=== PATIENT | male | born 1975 | race Caucasian/White ===

== ENCOUNTER 2019-10-01 15:28 | Emergency (ER) | payer BC ==
[2019-10-01] MEDS ORDERED: BACTRIM 160MG/800MG DS TAB As Ordered ONE (16:43)
[2019-10-01] MEDS ORDERED: BACTRIM 160MG/800MG DS TAB ONE (16:43)
== END 2019-10-01 16:54 | disposition home or self-care (01) ==
LOC: M ED 15:28
DX: K61.1 Rectal abscess (principal); I10 Essential (primary) hypertension; Z79.899 Other long term (current) drug therapy

== ENCOUNTER 2022-05-30 11:07 | Emergency (ER) | payer OTHER, BC ==
[~2022-05-30] VITALS: Ht 172.7 cm; Wt 104.5 kg
[2022-05-30] MEDS ORDERED: ISOVUE-370 76% 100ML VIAL As Ordered ONE (11:31)
[2022-05-30 11:36] LABS: BASO # 0.1 10^3/uL (0.0-0.2); EOS # 0.3 10^3/uL (0.0-0.5); EOS % 4.4 % (0.0-3.0); HEMATOCRIT 55.6 % (42.0-52.0); HEMOGLOBIN 17.5 g/dl (13.5-17.5); LYMPH % 17.5 % (24.0-44.0); MEAN CORPUSCULAR HEMOGLOBIN 25.4 pg (27.0-33.0); MEAN CORPUSCULAR HGB CONC 31.5 g/dl (32.0-36.5); MEAN CORPUSCULAR VOLUME 80.8 fl (80.0-96.0); MONO # 0.7 10^3/uL (0.0-0.8); MONO % 11.4 % (2.0-8.0); NEUTROPHILS # 3.9 10^3/uL (1.5-8.5); NEUTROPHILS % 65.4 % (36.0-66.0); PLATELET COUNT, AUTOMATED 214 10^3/uL (150-450); RED BLOOD COUNT 6.88 10^6/uL (4.30-6.10); WHITE BLOOD COUNT 5.9 10^3/uL (4.0-10.0)
[2022-05-30 11:47] LABS: INR 1.52; PROTHROMBIN TIME 18.6 SECONDS (12.5-14.5)
[2022-05-30 11:48] LABS: PARTIAL THROMBOPLASTIN TIME 39.4 SECONDS (24.8-34.2)
[2022-05-30 11:56] LABS: ALBUMIN 3.7 G/DL (3.2-5.2); BILIRUBIN,DIRECT 0.2 MG/DL (<0.4); BILIRUBIN,TOTAL 0.4 MG/DL (0.3-1.2); TOTAL PROTEIN 6.9 G/DL (5.7-8.2)
[2022-05-30 13:15] VITALS: BP 146/78
[2022-05-30 13:22] LABS: BLOOD UREA NITROGEN 11 MG/DL (9-23); CALCIUM LEVEL 8.4 MG/DL (8.5-10.1); CARBON DIOXIDE LEVEL 27 MMOL/L (20-31); CHLORIDE LEVEL 102 MMOL/L (98-107); CREATININE FOR GFR 0.85 MG/DL (0.70-1.30); GLOMERULAR FILTRATION RATE > 60.0 (>60); GLUCOSE, FASTING 87 MG/DL (60-100); POTASSIUM SERUM 4.3 MMOL/L (3.5-5.1); SODIUM LEVEL 134 MMOL/L (136-145)
== END 2022-05-30 13:30 | disposition home or self-care (01) ==
LOC: M ED 11:07 → EDBD 11:07 → M ED 13:30
DX: S30.0XXA Contusion of lower back and pelvis, initial encounter (principal); V09.20XA Pedestrian injured in traffic accident involving unspecified motor vehicles, initial encounter; Y92.511 Restaurant or cafe as the place of occurrence of the external cause; Y93.89 Activity, other specified; Y99.8 Other external cause status; I10 Essential (primary) hypertension; Z86.718 Personal history of other venous thrombosis and embolism
CPT/HCPCS: 36415; 70450; 71045; 71260; 72125; 72128; 72131; 74177; 80047; 80048; 80076; 85025; 85610; 85730; 86850; 86900; 86901; 93041; 94760; 99285; Q9967

== ENCOUNTER 2023-09-11 19:26 | Emergency (ER) | payer BC, OTHER ==
[~2023-09-11] VITALS: Ht 172.7 cm; Wt 99.8 kg
[2023-09-11] MEDS ORDERED: IBUP-1022 PO (21:32)
[2023-09-11 21:43] VITALS: BP 127/66; TEMP 97.8; O2SAT 97
== END 2023-09-11 21:48 | disposition home or self-care (01) ==
LOC: M ED 19:26
DX: I82.612 Acute embolism and thrombosis of superficial veins of left upper extremity (principal)